=== PATIENT | male | born 1980 | race Caucasian/White ===

== ENCOUNTER 2025-11-10 20:40 | Inpatient (IN) | payer SELFPAY ==
[~2025-11-10] VITALS: Ht 165.1 cm; Wt 96.3 kg
--- NOTE | 2025-11-10 21:03 | ED.PDOC ---
HPI Comments 44-year-old male presents to the ED for chief complaint of chest pain. Patient reports that he was replacing his stove earlier today around 6:30 p.m. states he developed some right shoulder pain that radiates across his chest to his left shoulder. EMS reports that after giving patient 0.8 of nitroglycerin and 325 mg of aspirin, pain improved in his now ready in a 1/10 on the pain scale. EMS does mentioned a blood pressure of 190/92 and 192 heart rate. Patient states that he has a family history of heart disease with multiple family members have of heart attack. . Patient is currently taking prednisone for this eczema. He denies any associated symptoms such as shortness of breath, nausea, fever, chills. Vitals: Temp: BP: HR: RR: Past medical history: Eczema, and asthma. Past surgical history: Denies Social history: Denies Allergies: Denies Significant past medical history of coronary artery disease. HPI: Poor Historian. Symptoms have essentially resolved by the time he arrived to the ED after received aspirin and nitroglycerin. REVIEW OF SYSTEMS: CONSTITUTIONAL: Denies acute: fever, diaphoresis, chills, generalized weakness. HEAD: Denies acute: headache, photophobia Eyes: Denies acute: Double vision, vision loss, eye pain, eye discharge. EARS: Denies acute: tinnitus, hearing loss, ear discharge, ear pain, THROAT: Denies acute: sore throat, swelling, difficulty swallowing , pain with swallowing, change in voice. NECK: Denies acute: neck pain, neck swelling, stiff neck. HEART: Denies acute : , palpitations, LUNGS: Denies acute: SOB, wheezing, cough, hemoptysis ABDOMEN: Denies acute: abdominal pain, Nausea, Vomiting, diarrhea, melena , hematemesis, hematochezia SKIN: Denies acute: rash, redness, lesions, itchiness. EXTREMITIES: Denies acute: calf pain, numbness, tingling, weakness, denies pain in extremity. Denies acute: Low back pain. Neuro: Denies acute: focal neurological deficit, motor or sensory focal neurological deficit, tremors, seizure like activity, confusion, dizziness, change in mental status, loss of bowel or bladder function, cauda equina like symptoms. : Denies acute: dysuria, hematuria, flank pain, increase in urinary frequency. PSYCH: Denies acute: hallucination, suicidal ideation, homicidal ideation. PHYSICAL EXAM: General: ---mild-----acute distress, awake and alert. Head: normocephalic, atraumatic. No raccoon's eyes, no ordoñez sign. Neck: supple, trachea is midline, no swelling. Throat: Normal phonation. Eyes:, no erythema, no purulent discharge, no proptosis, no icterus. Heart: regular rate, regular rhythm, no significant murmur appreciated. Lungs: no apparent respiratory distress, Able to speak in full sentences. No wheezing, no rhonchi, no crackles. No stridors Clear to auscultation bilaterally. Abdomen: non tender to palpation, non distended, soft, no guarding, no rebound, + bowel sounds. Neuro: Awake, Alert, oriented to name, self, situation, follows commands GCS=15. Speech is normal. Skin: no petechia, no purpura, no cyanosis, non-pale, not jaundice. Lower extremities: --no - Pitting edema no deformity, no focal swelling, no calf TTP. Makes eye contact. moves all four extremities. Face: no apparent facial droop. ED COURSE: DISCLAIMER: This medical document was created using an electronic medical record system with voice recognition software and computerized dictation system. Although this document has been carefully reviewed, there might still be some phonetic and typographical errors. Occasional wrong-word or "sound-alike" substitutions may have occurred due to the inherent limitations of voice recognition software. These areas are purely typographical due to imperfections of the software programs and do not reflect any compromise in the patient's medical care. Please read the chart carefully and recognize, using context, where these substitutions have occurred. Chief Complaint: Chest Pain Time Seen by MD: 20:54 Reviewed Notes: Indian Trader Notes, Medications, Allergies Allergies: Coded Allergies: NO KNOWN ALLERGIES (Unverified , 11/10/25) Information Source: Patient, Emergency Med Personnel Mode of Arrival: EMS Was a procedure done? Was a procedure done?: No CP Differential Dx Differential Diagnosis: Anxiety / Panic Attack, Electrolyte Disorder, Sinus Tachycardia Differential Diagnosis: Angina, Aortic dissection, Chest Wall Pain, Cholelithiasis, Costochondritis, Pericarditis X-Ray, Labs, Meds, VS Vital Signs Date Time Temp Pulse Resp B/P (MAP) Pulse Ox O2 Delivery O2 Flow Rate FiO2 11/10/25 21:06 98.2 100 20 155/88 96 98.2 11/10/25 20:41 92 Lab Test 11/10/25 20:44 Range/Units White Blood Count 7.7 4.4-10.8 10^3/uL Red Blood Count 5.44 4.5-5.90 10^6/uL Hemoglobin 16.3 13.5-17.5 g/dL Hematocrit 47.6 41.0-53.0 % Mean Corpuscular Volume 87.5 80.0-100.0 fL Mean Corpuscular Hemoglobin 30.0 28.0-32.0 pg Mean Corpuscular Hemoglobin Concent 34.3 32.0-36.0 g/dL Red Cell Distribution Width 13.9 11.8-14.3 % Platelet Count 195 140-450 10^3/uL Mean Platelet Volume 8.2 6.9-10.8 fL Neutrophils (%) (Auto) 74.6 37.0-80.0 % Lymphocytes (%) (Auto) 15.7 10.0-50.0 % Monocytes (%) (Auto) 8.8 0.0-12.0 % Eosinophils (%) (Auto) 0.4 0.0-7.0 % Basophils (%) (Auto) 0.5 0.0-2.0 % Neutrophils # (Auto) 5.8 1.6-8.6 10 ^3/uL Lymphocytes # (Auto) 1.2 0.4-5.4 10 ^3/uL Monocytes # (Auto) 0.7 0-1.3 10 ^3/uL Eosinophils # (Auto) 0 0-0.8 10 ^3/uL Basophils # (Auto) 0 0-0.2 10 ^3/uL Nucleated Red Blood Cells 0.1 % Sodium Level Pending Potassium Level Pending Chloride Level Pending Carbon Dioxide Level Pending Anion Gap Pending Blood Urea Nitrogen Pending Creatinine Pending Glomerular Filtration Rate Calc Pending BUN/Creatinine Ratio Pending Serum Glucose Pending Calcium Level Pending Troponin I High Sensitivity Pending Time of 1ST Reevaluation: 20:59 Reevaluation 1ST: Unchanged Patient Education/Counseling: Diagnosis, Treatment Family Education/Counseling: No Family Present Departure 1 Departure Time of Disposition: 21:25 Impression: Primary Impression: Chest pain Disposition: ADMITTED INPATIENT Admit to: Tele Condition: Guarded Discharged With: Self Critical Care Note Critical Care Time?: No Heart Score Heart Score: Heart Score Response (Comments) Value History Moderate Suspicious 1 Age <45 0 Risk Factors >3 or Hx ASHD 2 Total 3 I personally scribed for SACHA ARNDT DO ([email or web address]) on 11/10/25 at 21:03. Electronically submitted by Penelope Prasad ([facility]). SACHA ARNDT DO Nov 10, 2025 21:03
[2025-11-10 21:17] LABS: Hematocrit 47.6 % (41.0-53.0); Hemoglobin 16.3 g/dL (13.5-17.5); Mean Corpuscular Hemoglobin 30.0 pg (28.0-32.0); Mean Corpuscular Volume 87.5 fL (80.0-100.0); Nucleated Red Blood Cells % 0.1 %
[2025-11-10 21:32] LABS: Chloride 104 mmol/L (98-107); Potassium 3.9 mmol/L (3.5-5.1); Sodium 140 mmol/L (136-145)
[2025-11-10 21:33] LABS: Anion Gap 10 (5-15); Calcium 8.7 mg/dL (8.7-10.4); Carbon Dioxide 26 mmol/L (20-31)
[2025-11-10 21:38] LABS: BUN/Creatinine Ratio 11.9 (10.0-20.0); Blood Urea Nitrogen 14 mg/dL (9-23)
[2025-11-10 21:45] LABS: Glucose 162 mg/dL (74-106)
--- NOTE | 2025-11-10 22:56 | DVH ---
CHEST RADIOGRAPH INDICATION: CHEST PAIN TECHNIQUE: Single frontal view of the chest was obtained COMPARISON: None FINDINGS: Lungs and pleural spaces are clear. Cardiac silhouette and alireza are within normal limits. Bones and soft tissues demonstrate no significant abnormality. IMPRESSION: No acute disease.
[2025-11-11] VITALS (11 sets, daily range): BP systolic 131–134; BP diastolic 81–84; PULSE 64–78; RESP 16–20; TEMP 97.8–98.1; O2SAT 94–100
[2025-11-11] MEDS ORDERED: fentaNYL CITRATE 5 ML ONE (00:23)
[2025-11-11] MEDS: fentaNYL CITRATE 100 MCG/2 ML VL IV ONE (00:39)
[2025-11-11] MEDS ORDERED: NITROGLYCERIN 0.4 MG SL TAB SL PRN (02:00)
[2025-11-11] MEDS ORDERED: ONDANSETRON HCL 4 MG/2 ML VIAL IV PRN (02:00)
[2025-11-11] MEDS ORDERED: MORPHINE SULFATE INJ 2 MG/ml SYRG IV PRN (02:00)
[2025-11-11 02:10] LABS: Albumin 4.0 g/dL (3.2-4.8); Alkaline Phosphatase 101 U/L (46-116); Total Protein 6.5 g/dL (5.7-8.2)
[2025-11-11 02:54] LABS: Alanine Aminotransferase 89 U/L (7-40); Bilirubin, Direct < 0.1 mg/dL (<0.3); Bilirubin, Total 0.2 mg/dL (0.2-1.0)
[2025-11-11] MEDS: PANTOPRAZOLE 40 MG TAB PO SCH (05:26)
--- NOTE | 2025-11-11 07:44 | DVHHPRES ---
History of Present Illness Resident Creating Document: JHJENNYSTANTON RESIDENT History of Present Illness Patient is a 44-year-old male presented to the hospital with a chief complaint of chest pain. Patient reported chest pain which became few hours prior to the presentation across the upper chest, pressure-like, nonradiating brought on after exertion while the patient was sitting in a open in his house, relieved on nitroglycerin and aspirin which was given by the EMS. According with the EMS patient has a blood pressure of 190/92 and elevated heart rate at the scene following which he was brought to the hospital further evaluation. Patient reports significant family history of [place] and coronary artery disease in first- degree relatives. The reports patient snores a lot and has a episodes of sleep apnea at night. He also reports drinking alcohol about 6 beers daily. On arrival to the ER ECG was done which showed sinus rhythm with a slightly right axis deviation, PACs but no acute ST or T-wave changes. Troponins were within normal limits. Past medical history: Asthma, eczema Past surgical history: Denies Social history: Drinks 6 pack of beer daily, denies smoking or drug use Home medications: None Review of Systems Review of Systems Patient reports chest pain has improved since he was in the hospital No shortness of breath, palpitations, nausea or vomiting Allergies: Coded Allergies: NO KNOWN ALLERGIES (Unverified , 11/10/25) Medications Current Medications Medications Dose Ordered Sig/Lorie Route Start Time Stop Time Status Last Admin Dose Admin Nitroglycerin 0.4 mg Q5MINP PRN SL 11/11/25 02:00 Morphine Sulfate 2 mg Q30M PRN IV 11/11/25 02:00 Losartan Potassium 50 mg DAILY PO 11/11/25 10:00 Albuterol 2.5 mg Q8HPRN PRN NEB 11/11/25 02:00 Ondansetron HCl 4 mg Q6HPRN PRN IV 11/11/25 02:00 Pantoprazole Sodium 40 mg DAILY@0600 PO 11/11/25 06:00 11/11/25 05:26 40 MG Aspirin 81 mg DAILY PO 11/11/25 10:00 Exam Vital Signs Vital Signs Date Time Temp Pulse Resp B/P (MAP) Pulse Ox O2 Delivery O2 Flow Rate FiO2 11/11/25 05:18 98.1 78 18 134/87 (103) 97 98.1 11/11/25 03:33 Room Air* 0 21 Exam Skin - Patients skin is warm and dry. HEENT - normocephalic, atraumatic, moist mucous membranes, no scleral icterus, no conjunctival pallor. Neck - full ROM, no LAD, no JVD Pulmonary - B/L clear breath sounds without any wheezing, rales or stridor cardiovascular - regular S1,S2 heard with the ectopic beats, no added sounds or murmurs heard. peripheral pulses normal radial 2+, pedal 2+. No pitting extremity edema GI - soft, nontender abdomen. no hepatospleenomegaly. Bowel sounds normoactive Neurological - Patient is A/O X 4 . Bilateral upper extremity strength 5/5, bilateral lower extremity strength 5/5, no facial droop, normal speech, no tremor, no sensory deficiets. Labs/Xrays Labs Test 11/10/25 20:44 Range/Units White Blood Count 7.7 4.4-10.8 10^3/uL Red Blood Count 5.44 4.5-5.90 10^6/uL Hemoglobin 16.3 13.5-17.5 g/dL Hematocrit 47.6 41.0-53.0 % Mean Corpuscular Volume 87.5 80.0-100.0 fL Mean Corpuscular Hemoglobin 30.0 28.0-32.0 pg Mean Corpuscular Hemoglobin Concent 34.3 32.0-36.0 g/dL Red Cell Distribution Width 13.9 11.8-14.3 % Platelet Count 195 140-450 10^3/uL Mean Platelet Volume 8.2 6.9-10.8 fL Neutrophils (%) (Auto) 74.6 37.0-80.0 % Lymphocytes (%) (Auto) 15.7 10.0-50.0 % Monocytes (%) (Auto) 8.8 0.0-12.0 % Eosinophils (%) (Auto) 0.4 0.0-7.0 % Basophils (%) (Auto) 0.5 0.0-2.0 % Neutrophils # (Auto) 5.8 1.6-8.6 10 ^3/uL Lymphocytes # (Auto) 1.2 0.4-5.4 10 ^3/uL Monocytes # (Auto) 0.7 0-1.3 10 ^3/uL Eosinophils # (Auto) 0 0-0.8 10 ^3/uL Basophils # (Auto) 0 0-0.2 10 ^3/uL Nucleated Red Blood Cells 0.1 % Sodium Level 140 136-145 mmol/L Potassium Level 3.9 3.5-5.1 mmol/L Chloride Level 104 98-107 mmol/L Carbon Dioxide Level 26 20-31 mmol/L Anion Gap 10 5-15 Blood Urea Nitrogen 14 9-23 mg/dL Creatinine 1.18 0.700-1.30 mg/dL Glomerular Filtration Rate Calc 78 >90 mL/min BUN/Creatinine Ratio 11.9 10.0-20.0 Serum Glucose 162 H 74-106 mg/dL Calcium Level 8.7 8.7-10.4 mg/dL Total Bilirubin 0.2 0.2-1.0 mg/dL Direct Bilirubin < 0.1 <0.3 mg/dL Aspartate Amino Transferase (AST) 59 H 13-40 U/L Alanine Aminotransferase (ALT) 89 H 7-40 U/L Alkaline Phosphatase 101 46-116 U/L Troponin I High Sensitivity 6 </=54 ng/L Total Protein 6.5 5.7-8.2 g/dL Albumin 4.0 3.2-4.8 g/dL SEPSIS Sepsis Screen Date sepsis recognized/suspect: Nov 11, 2025 Time Sepsis recognized/suspect: 334 Recent Procedure: No On Antibiotic Therapy: No Respiratory Rate >20: No Heart Rate >90: No Temp<36 C (96.8 F) or >38.3 C: No SBP <90 or MAP <65 mmHG: No New Acute Mental Status Change: No Is the patient on CPAP, BIPAP,: No Physician Orders Admit (11/11/25 01:47) Nitroglycerin Sublingual (Ntrostat Subli (11/11/25 02:00) Morphine Sulfate Injection (11/11/25 02:00) Oxygen By Nasal Cannula (11/11/25 01:47) Stat Ekg For Chest Pain (11/11/25 01:47) Notify Of Changes From Base (11/11/25 01:47) Paster Supervisor For 24 Hours (11/11/25 01:47) Emergency Dysrhythmia Protocol (11/11/25 01:47) Losartan Tablet (Cozaar Tablet) (11/11/25 10:00) Albuterol Medneb (Ventolin Medneb) (11/11/25 02:00) Ondansetron Hcl (Zofran) (11/11/25 02:00) Pantoprazole Tablet (Protonix Tablet) (11/11/25 06:00) Aspirin Enteric Coated Tablet (Ecotrin E (11/11/25 10:00) Cardiac Diet-2gna,Lofat,Lochol (11/11/25 Breakfast) Echo 2d Mode Cardiac Dop (11/11/25 01:47) Echo 2d Mode Cardiac Dop (11/11/25 07:33) Vital Signs Date Time Temp Pulse Resp B/P (MAP) Pulse Ox O2 Delivery O2 Flow Rate FiO2 11/11/25 05:18 98.1 78 18 134/87 (103) 97 98.1 11/11/25 04:00 63 11/11/25 03:33 98.1 78 20 145/77 (99) 97 98.1 11/11/25 03:33 78 18 97 Room Air* 0 21 11/11/25 02:38 97.9 78 18 139/94 (109) 95 97.9 11/11/25 02:24 97.8 72 18 134/81 94 97.8 11/11/25 02:13 94 Room Air* 0 21 11/11/25 02:13 94 Room Air 0.0 11/10/25 23:43 71 Laboratory Tests Test 11/10/25 20:44 White Blood Count 7.7 10^3/uL (4.4-10.8) Medications Medications Dose Ordered Sig/Lorie Route Start Time Stop Time Status Last Admin Dose Admin Pantoprazole Sodium 40 mg DAILY@0600 PO 11/11/25 06:00 11/11/25 05:26 40 MG Assessment/Plan Assessment/Plan Acute chest pain, rule out ACS Probable angina Uncontrolled hypertension Possible sleep apnea Possible pulmonary hypertension Plan - started on aspirin - started on losartan 50 - echocardiogram pending - patient would benefit from a Cardiology consult PUD prophylaxis: Protonix DVT prophylaxis: Patient is ambulatory Goals of care discussed with the patient and the for over 18 minutes. Full code Time spent: 34 minutes Plan discussed with Dr. Lu Plan discussed with: Patient, Spouse My Orders Orders - STANTON AYALA RESIDENT Procedure Category Date Status Time Admit ADMIT 11/11/25 Transmitted 01:47 Nitroglycerin PHA 11/11/25 In Process Sublingual (Ntrostat 02:00 Morphine Sulfate PHA 11/11/25 In Process Injection 02:00 Oxygen By Nasal RT 11/11/25 Transmitted Cannula 01:47 Stat Ekg For Chest MARLENI 11/11/25 In Process Pain 01:47 Notify Md Of Changes MARLENI 11/11/25 In Process From Base 01:47 Paster Supervisor For MARLENI 11/11/25 In Process 24 Hours 01:47 Emergency Dysrhythmia MARLENI 11/11/25 In Process Protocol 01:47 Losartan Tablet PHA 11/11/25 In Process (Cozaar Tablet) 10:00 Albuterol Medneb PHA 11/11/25 In Process (Ventolin Medneb) 02:00 Ondansetron Hcl PHA 11/11/25 In Process (Zofran) 02:00 Pantoprazole Tablet PHA 11/11/25 In Process (Protonix Tablet) 06:00 Aspirin Enteric PHA 11/11/25 In Process Coated Tablet 10:00 Cardiac DIET 11/11/25 Transmitted Diet-2gna,Lofat,Lochol Breakfast Echo 2d Mode Cardiac US 11/11/25 Logged DOP 01:47 Echo 2d Mode Cardiac US 11/11/25 Verified DOP 07:33 Visit Coding STANDARD RES Billing Provider: CURT LU MD Date of Service if different f: Nov 11, 2025 Common Visit Codes: 17072-QYVMNQS INP/OBS CARE (HIGH) Secondary Visit Codes: 54637-FKHMWVKM CARE PLAN 30 MINUTES STANTON AYALA RESIDENT Nov 11, 2025 07:44
[2025-11-11] MEDS: ALBUTEROL SULF 2.5 MG/0.5ML(0.5%) NEB SOLN NEB PRN (08:41)
[2025-11-11 08:49] LABS: Cholesterol 182 mg/dL (< 200); HDL Cholesterol 43 mg/dL (40-59)
[2025-11-11 08:58] LABS: Triglycerides 394 mg/dL (< 150)
[2025-11-11] MEDS: LOSARTAN POTASSIUM 50 MG TAB PO SCH (09:50)
[2025-11-11] MEDS: ASPirin-EC 81 mg tab PO SCH (09:52)
--- NOTE | 2025-11-11 13:55 | DVHSR ---
APPROVED REPORT EXAM: Two-dimensional and M-mode echocardiogram with Doppler and color Doppler. Blood Pressure: 134/87 mmHg INDICATION Chest Pain PHTN LVH RISK FACTORS Height: 5' 5", Weight: 212 DIMENSIONS LVDd 5.1 (3.8-5.7cm) LA (2D) 4.0 (1.9-4.0cm) Aortic Root 3.8 (2.0-3.7cm) LVDs 3.8 (2.5-4.0cm) LA (MM) (1.9-4.0cm) Aortic Cusp Exc 1.8 (1.5-2.0cm) EF (%) 50.0 (55-70%) Rt. Atrium 4.6 (1.9-4.0cm) Asc. Aorta cm IVSd 0.8 (0.7-1.1cm) RV (D) (1.8-2.4cm) PWd 0.9 (0.7-1.1cm) Mitral Valve Mitral Mitral Stenosis E wave 1.10m/s MV Mean GR. mmHg A wave 0.80m/s MV Peak GR. mmHg E/A ratio 1.4 2D MVA cm2 Aortic Valve Aortic Valve Aortic Stenosis V1 0.90m/s AO Mean GR. 5mmHg V2 1.50m/s AO Peak GR. 9mmHg LVOT Diameter 2.1 (1.8-2.4cm) Doppler RAMSEY 2.08cm2 Pulmonic Valve V2 0.60m/s Tricuspid Valve TR Velocity 2.20m/s RVSP 30mmHg Conclusion Left ventricle: The cavity size is normal. Systolic function is normal. The ejection fraction is 50-55%. Diastolic function is normal. Right ventricle: Systolic function is normal. Estimated RVSP is 30 mm Hg Mitral valve: There is no stenosis. There is trace regurgitation. Aortic valve: The valve is tricuspid. There is no stenosis. There is no regurgitation. Tricuspid valve: There is mild regurgitation. There is no stenosis. Pulmonic valve: There is no regurgitation. Pericardium: No pericardial effusion Inferior vena cava: The vessel is normal in size. There is normal respiratory phasic variation.
[2025-11-11] MEDS ORDERED: BACL10TA PO (16:36)
[2025-11-11] MEDS ORDERED: LOSA-534 PO (16:36)
--- NOTE | 2025-11-11 16:37 | DVHDS2 ---
Discharge Summary Date of Admission Nov 11, 2025 at 01:47 Date of Discharge: Nov 11, 2025 Labs/Diagnostic Data: Laboratory Results Test 11/11/25 08:09 11/10/25 20:44 Hemoglobin A1c 6.1 % A1C (<5.7) Triglycerides Level 394 mg/dL (< 150) Cholesterol Level 182 mg/dL (< 200) LDL Cholesterol 92 mg/dL (< 100) HDL Cholesterol 43 mg/dL (40-59) White Blood Count 7.7 10^3/uL (4.4-10.8) Red Blood Count 5.44 10^6/uL (4.5-5.90) Hemoglobin 16.3 g/dL (13.5-17.5) Hematocrit 47.6 % (41.0-53.0) Mean Corpuscular Volume 87.5 fL (80.0-100.0) Mean Corpuscular Hemoglobin 30.0 pg (28.0-32.0) Mean Corpuscular Hemoglobin Concent 34.3 g/dL (32.0-36.0) Red Cell Distribution Width 13.9 % (11.8-14.3) Platelet Count 195 10^3/uL (140-450) Mean Platelet Volume 8.2 fL (6.9-10.8) Neutrophils (%) (Auto) 74.6 % (37.0-80.0) Lymphocytes (%) (Auto) 15.7 % (10.0-50.0) Monocytes (%) (Auto) 8.8 % (0.0-12.0) Eosinophils (%) (Auto) 0.4 % (0.0-7.0) Basophils (%) (Auto) 0.5 % (0.0-2.0) Neutrophils # (Auto) 5.8 10 ^3/uL (1.6-8.6) Lymphocytes # (Auto) 1.2 10 ^3/uL (0.4-5.4) Monocytes # (Auto) 0.7 10 ^3/uL (0-1.3) Eosinophils # (Auto) 0 10 ^3/uL (0-0.8) Basophils # (Auto) 0 10 ^3/uL (0-0.2) Nucleated Red Blood Cells 0.1 % Sodium Level 140 mmol/L (136-145) Potassium Level 3.9 mmol/L (3.5-5.1) Chloride Level 104 mmol/L (98-107) Carbon Dioxide Level 26 mmol/L (20-31) Anion Gap 10 (5-15) Blood Urea Nitrogen 14 mg/dL (9-23) Creatinine 1.18 mg/dL (0.700-1.30) Glomerular Filtration Rate Calc 78 mL/min (>90) BUN/Creatinine Ratio 11.9 (10.0-20.0) Serum Glucose 162 mg/dL (74-106) Calcium Level 8.7 mg/dL (8.7-10.4) Total Bilirubin 0.2 mg/dL (0.2-1.0) Direct Bilirubin < 0.1 mg/dL (<0.3) Aspartate Amino Transferase (AST) 59 U/L (13-40) Alanine Aminotransferase (ALT) 89 U/L (7-40) Alkaline Phosphatase 101 U/L (46-116) Troponin I High Sensitivity 6 ng/L (</=54) Total Protein 6.5 g/dL (5.7-8.2) Albumin 4.0 g/dL (3.2-4.8) Other Laboratory Tests 11/10/25 20:44 Brief Hx & Hospital Course: 44-year-old male presented to the hospital with a chief complaint of chest pain. Patient reported chest pain which became few hours prior to the presentation across the upper chest, pressure-like, nonradiating brought on after exertion while the patient was sitting in a open in his house, relieved on nitroglycerin and aspirin which was given by the EMS. According with the EMS patient has a blood pressure of 190/92 and elevated heart rate at the scene following which he was brought to the hospital further evaluation. Patient reports significant family history of [place] and coronary artery disease in first-degree relatives. The reports patient snores a lot and has a episodes of sleep apnea at night. He also reports drinking alcohol about 6 beers daily. On arrival to the ER ECG was done which showed sinus rhythm with a slightly right axis deviation, PACs but no acute ST or T-wave changes. Troponins were within normal limits. 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 Patient needs outpatient sleep apnea test, patient needs outpatient stress test. Troponins are negative, EKG unremarkable, tele and incompetent remarkable, echo unremarkable, echo with EF 55%. Patient. Patient is stable for discharge to follow up with PCP. See discharge instructions below.. -patient has family history could be high-risk Diagnosis: Acute chest pain, likely costochondritis ruled out ACS Possible GERD. Uncontrolled hypertension Possible sleep apnea Possible pulmonary hypertension Plan: - trial baclofen 10 twice daily for 5 days . Extra tablets to be used as prn up to TID prn -start losartan 50 daily. - advised to trial [id number] antacids Pepcid or Nexium if pain returns. If pain is persistent despite taking antacids was advised to return to ER - patient close close follow up with PCP, PCP to consider outpatient stress test and, also outpatient sleep study/home apnea study. -continue other home medications not mentioned above. Condition at Discharge: Fair Final Diagnosis/Problems List Acute chest pain, likely costochondritis ruled out ACS Possible GERD. Uncontrolled hypertension Possible sleep apnea Possible pulmonary hypertension Discharge Disposition: Hospice - Home Discharge Instruct/Medications Scheduled Baclofen (Baclofen), 10 MG PO BID Losartan Potassium (Losartan Potassium), 1 TAB PO DAILY Discharge Statement: "Patient was advised to return to the ER or call 911 if any headaches, dizziness, shortness of breath, chest pain, abdominal pain, bleeding, fevers, or worsening of medical condition. Patient was counseled about treatment plan, medications, possible side effects, patientverbalized understanding. All questions were answered to the best of my ability. This discharge took greater then 30 minutes in planning, reviewing documentation, counseling the patient, and discussing with other team members." ASSESSMENT ASSESSMENT Assessment Date of Service: Nov 11, 2025 Billing Provider: SHARON GRANGER MD Common Visit Codes: 71088-MRO/OBS DISCH DAY >30min SHARON GRANGER MD Nov 11, 2025 16:37
--- NOTE | 2025-11-12 10:16 | ECG ---
[facility] Test Date: 2025-11-10 Test Time: 23:43:31 Pat Name: JOSE MANUEL GANT Department: Room: 0272T B Gender: M Web Master: PEGGY : 1980 Requested By: SACHA ARNDT Order Number: [id number] Reading MD: Sabas Matute Measurements Intervals [place] Rate: 71 P: 66 NE: 136 QRS: 88 QRSD: 97 T: 30 QT: 377 QTc: 410 Interpretive Statements Sinus rhythm Atrial premature complexes Electronically Signed On 11-12-2025 15:27:19 PST by Sabas Mattue Please click the below link to view image of tracing.
--- NOTE | 2025-11-12 10:16 | ECG ---
[facility] Test Date: 2025-11-10 Test Time: 21:47:09 Pat Name: JOSE MANUEL GANT Department: Room: [facility]2T B Gender: M Automotive Assembler: PEGGY : 1980 Requested By: SACHA ARNDT Order Number: [id number] Reading MD: Sabas Matute Measurements Intervals [place] Rate: 75 P: 65 AR: 130 QRS: 90 QRSD: 98 T: 31 QT: 354 QTc: 396 Interpretive Statements Sinus rhythm Borderline right axis deviation Electronically Signed On 11-12-2025 15:27:07 PST by Sabas Matute Please click the below link to view image of tracing.
--- NOTE | 2025-11-12 10:16 | ECG ---
[facility] Test Date: 2025-11-10 Test Time: 20:41:25 Pat Name: JOSE MANUEL GANT Department: [facility] ED Patient ID: [id number] Room: 0272T B Gender: M Oncology Registrar: milana : 1980 Requested By: SACHA ARNDT Order Number: [id number] Reading MD: Sabas Matute Measurements Intervals [place] Rate: 92 P: 113 [place]: 137 QRS: 86 QRSD: 95 T: 162 QT: 339 QTc: 420 Interpretive Statements Sinus rhythm Supraventricular bigeminy Probable left atrial enlargement Abnormal T, consider ischemia, lateral leads Electronically Signed On 11-12-2025 15:26:51 PST by Sabas Matute Please click the below link to view image of tracing.
== END 2025-11-11 18:40 | disposition home or self-care (01) | DRG 206 ==
LOC: ER 20:40 → EDBD 20:40 → OVERFLOW 11-11 01:47 → TELE-WESTW 11-11 06:20
DX: M94.0 Chondrocostal junction syndrome [Tietze] (principal); I27.20 Pulmonary hypertension, unspecified; I10 Essential (primary) hypertension; J45.909 Unspecified asthma, uncomplicated; K21.9 Gastro-esophageal reflux disease without esophagitis; G47.30 Sleep apnea, unspecified; Z82.49 Family history of ischemic heart disease and other diseases of the circulatory system
CPT/HCPCS: 36415; 71045; 80048; 80061; 80076; 83036; 84484; 85025; 93005; 93306; 94640; G0378